=== PATIENT | female | born 1935 | race Caucasian/White ===

== ENCOUNTER 2018-09-19 13:49 | Inpatient (IN) | payer OTHER ==
[2018-09-19 17:29] LABS: ADD MAN DIFF? NO
[2018-09-19] MEDS: METHYLPREDNISOLONE 125 MG INJ IV (17:29)
[2018-09-19] MEDS: LEVALBUTEROL (NEB) 1.25 MG/0.5 ML AMP INH (17:32)
[2018-09-19] MEDS: IPRATROPIUM (NEB) 0.5 MG/2.5 ML AMP INH (17:32)
[2018-09-19 17:37] LABS: WHITE BLOOD COUNT 8.3 10^3/ul (4.8-10.8)
[2018-09-19 17:37] LABS: BASOPHIL # 0.1 10^3/ul (0.0-0.1); BASOPHILS % 0.7 % (0.0-2.0); EOSINOPHILS # 0.6 10^3/ul (0.0-0.5); EOSINOPHILS % 7.5 % (0.0-7.0); HEMATOCRIT 45.6 % (37.0-47.0); HEMOGLOBIN 14.8 g/dl (12.0-16.0); LYMPHOCYTES # 3.4 10^3/ul (0.8-2.9); LYMPHOCYTES % 40.7 % (15.0-51.0); MEAN CORPUSCULAR HEMOGLOBIN 29.5 pg (29.0-33.0); MEAN CORPUSCULAR HGB CONC 32.5 g/dl (32.0-37.0); MEAN CORPUSCULAR VOLUME 90.8 fl (82.0-101.0); MEAN PLATELET VOLUME 12.4 fl (7.4-10.4); MONOCYTE # 0.6 10^3/ul (0.3-0.9); MONOCYTES % 6.7 % (0.0-11.0); NEUTROPHIL # 3.7 10^3/ul (1.6-7.5); NEUTROPHILS % 44.3 % (39.0-77.0); PLATELET COUNT 192 10^3/UL (140-415); RED BLOOD COUNT 5.02 10^6/ul (4.20-5.40); RED CELL DISTRIBUTION WIDTH 13.2 % (11.5-14.5)
[2018-09-19 17:51] LABS: INR 0.97
[2018-09-19 17:52] LABS: PARTIAL THROMBOPLASTIN TIME 26.9 Sec (23.0-35.0)
[2018-09-19 17:55] LABS: ANION GAP 8 (5-13); BLOOD UREA NITROGEN 18 mg/dl (7-20); CALCIUM 9.6 mg/dl (8.4-10.2); CARBON DIOXIDE 31 mmol/L (21-31); CHLORIDE 102 mmol/L (97-110); CREATININE 0.68 mg/dl (0.44-1.00); GLUCOSE 114 mg/dl (70-220); POTASSIUM 4.4 mmol/L (3.5-5.1); SODIUM 141 mmol/L (135-144)
[2018-09-19 18:13] LABS: TROPONIN-I < 0.012 ng/ml (0.000-0.120)
[2018-09-19] MEDS ORDERED: DOCUSATE SODIUM 100 MG CAP PO (20:00)
[2018-09-19] MEDS ORDERED: LEVALBUTEROL (NEB) 1.25 MG/0.5 ML AMP HHN (20:00)
[2018-09-19] MEDS ORDERED: ACETAMINOPHEN 325 MG TAB PO (20:00)
[2018-09-19] MEDS ORDERED: NACL 0.9% 3 ML SYG IV (20:00)
[2018-09-19] MEDS ORDERED: BISACODYL (EC) 5 MG TAB PO (20:00)
[2018-09-19] MEDS ORDERED: ONDANSETRON 4 MG INJ IV (20:00)
[2018-09-19] MEDS: LEVALBUTEROL (NEB) 1.25 MG/0.5 ML AMP HHN (20:26)
[2018-09-19] MEDS: IPRATROPIUM (NEB) 0.5 MG/2.5 ML AMP HHN ×2 (20:26→20:27)
[2018-09-19] MEDS ORDERED: ALBUTEROL/IPRATROPIUM (NEB) 3 ML AMP HHN (21:00)
[2018-09-19] MEDS: ATORVASTATIN 10 MG TAB PO (23:08)
[2018-09-20] MEDS: LEVALBUTEROL (NEB) 1.25 MG/0.5 ML AMP HHN ×6 (01:33→20:40)
[2018-09-20] MEDS: IPRATROPIUM (NEB) 0.5 MG/2.5 ML AMP HHN ×6 (01:33→20:40)
[2018-09-20 06:05] LABS: ADD MAN DIFF? NO
[2018-09-20 06:09] LABS: HEMOGLOBIN 14.4 g/dl (12.0-16.0); LYMPHOCYTES # 1.2 10^3/ul (0.8-2.9); LYMPHOCYTES % 29.2 % (15.0-51.0); MEAN CORPUSCULAR HEMOGLOBIN 29.7 pg (29.0-33.0); MEAN CORPUSCULAR HGB CONC 32.7 g/dl (32.0-37.0); MEAN CORPUSCULAR VOLUME 90.7 fl (82.0-101.0); MEAN PLATELET VOLUME 12.9 fl (7.4-10.4); MONOCYTES % 0.7 % (0.0-11.0); NEUTROPHILS % 69.6 % (39.0-77.0); PLATELET COUNT 182 10^3/UL (140-415); RED BLOOD COUNT 4.85 10^6/ul (4.20-5.40); RED CELL DISTRIBUTION WIDTH 13.2 % (11.5-14.5)
[2018-09-20 06:09] LABS: WHITE BLOOD COUNT 4.3 10^3/ul (4.8-10.8)
[2018-09-20] MEDS: PANTOPRAZOLE (EC) 40 MG TAB PO (06:24)
[2018-09-20] MEDS: LEVOTHYROXINE 75 MCG TAB PO (06:24)
[2018-09-20] MEDS: GUAIFENESIN/CODEINE 5ML CUP PO ×2 (06:31→22:17)
[2018-09-20 06:42] LABS: ALANINE AMINOTRANSFERASE 19 IU/L (13-69); ALBUMIN 3.9 g/dl (3.3-4.9); ALBUMIN/GLOBULIN RATIO 1.02; ALKALINE PHOSPHATASE 60 IU/L (42-121); ANION GAP 10 (5-13); ASPARTATE AMINO TRANSFERASE 28 IU/L (15-46); BILIRUBIN,INDIRECT 0.5 mg/dl (0-1.1); BILIRUBIN,TOTAL 0.5 mg/dl (0.2-1.3); BLOOD UREA NITROGEN 25 mg/dl (7-20); CALCIUM 9.7 mg/dl (8.4-10.2); CARBON DIOXIDE 27 mmol/L (21-31); CHLORIDE 105 mmol/L (97-110); CHOL/HDL RATIO 3.9 RATIO; CHOLESTEROL 147 mg/dl (100-200); CREATININE 0.79 mg/dl (0.44-1.00); GLUCOSE 158 mg/dl (70-220); HDL CHOLESTEROL 37 mg/dl (33-92); LDL CHOLESTEROL,CALCULATED 95 mg/dl; MAGNESIUM 1.8 mg/dl (1.7-2.5); SODIUM 142 mmol/L (135-144); TOTAL PROTEIN 7.7 g/dl (6.1-8.1); TRIGLYCERIDES 73 mg/dl (0-149)
[2018-09-20 07:09] LABS: THYROID STIMULATING HORMONE 0.495 MIU/L (0.465-4.680)
[2018-09-20 07:19] LABS: HEMOGLOBIN A1C 5.6 % (0-5.9)
[2018-09-20 07:31] LABS: B-TYPE NATRIURETIC PEPTIDE 405 PG/ML (0-450)
[2018-09-20] MEDS: ASPIRIN (EC) 81 MG TAB PO (08:03)
[2018-09-20] MEDS: ALLOPURINOL 100 MG TAB PO (08:04)
[2018-09-20] MEDS: predniSONE 20 MG TAB PO (08:04)
[2018-09-20] MEDS: ATORVASTATIN 10 MG TAB PO (20:48)
[2018-09-21] MEDS: IPRATROPIUM (NEB) 0.5 MG/2.5 ML AMP HHN ×5 (00:17→17:00)
[2018-09-21] MEDS: LEVALBUTEROL (NEB) 1.25 MG/0.5 ML AMP HHN ×5 (00:17→17:00)
[2018-09-21] MEDS: PANTOPRAZOLE (EC) 40 MG TAB PO (06:15)
[2018-09-21] MEDS: LEVOTHYROXINE 75 MCG TAB PO (06:16)
[2018-09-21 06:27] LABS: ANION GAP 6 (5-13); BLOOD UREA NITROGEN 29 mg/dl (7-20); CARBON DIOXIDE 30 mmol/L (21-31); CHLORIDE 103 mmol/L (97-110); CREATININE 0.84 mg/dl (0.44-1.00); GLUCOSE 117 mg/dl (70-220); POTASSIUM 4.1 mmol/L (3.5-5.1); SODIUM 139 mmol/L (135-144)
[2018-09-21] MEDS: ASPIRIN (EC) 81 MG TAB PO (08:22)
[2018-09-21] MEDS: predniSONE 20 MG TAB PO (08:22)
[2018-09-21] MEDS: ALLOPURINOL 100 MG TAB PO (08:22)
== END 2018-09-21 17:20 | disposition home or self-care (01) | DRG 202 ==
LOC: E/R 13:49 → 6WM 22:42
DX: J45.901 Unspecified asthma with (acute) exacerbation (principal); I50.30 Unspecified diastolic (congestive) heart failure; E03.9 Hypothyroidism, unspecified; E78.5 Hyperlipidemia, unspecified
CPT/HCPCS: 36415; 71045; 80048; 80053; 80061; 83036; 83735; 83880; 84443; 84484; 85025; 85610; 85730; 93005; 93306; 94640; 94644; 94664; 96374; 97116; 97162; 97530; 99285-25; G0378